=== PATIENT | female | born 2000 | race Hispanic/Latino ===

== ENCOUNTER 2024-02-13 21:51 | Emergency (ER) | payer BC ==
[~2024-02-13] VITALS: Ht 152.4 cm; Wt 68.0 kg
[2024-02-13 23:21] LABS: BASOPHILS # (AUTO) 0.02 K/uL (0.00-0.20); BASOPHILS % (AUTO) 0.2 % (0.0-5.0); EOSINOPHILS # (AUTO) 0.15 K/uL (0.00-0.70); EOSINOPHILS % (AUTO) 1.8 % (0.0-8.0); HEMATOCRIT 26.8 % (36-48); IMMATURE GRANULOCYTE ABSOLUTE 0.03 K/uL (0-1); LYMPHOCYTES # (AUTO) 3.2 K/uL (1.0-4.8); LYMPHOCYTES % (AUTO) 36.9 % (21.0-51.0); MEAN CORPUSCULAR VOLUME 91.2 fL (79-99); MONOCYTES # (AUTO) 0.5 K/uL (0.1-1.0); MONOCYTES % (AUTO) 5.7 % (3.0-13.0); NEUTROPHILS # (AUTO) 4.7 K/uL (1.8-7.7); PLATELET COUNT (AUTO) 205 K/uL (130-400); RED BLOOD CELL COUNT(AUTO) 2.94 MIL/uL (4.00-5.50); RED CELL DISTRIBUTION WIDTH 13.1 % (11.0-15.5); WHITE BLOOD COUNT (AUTO) 8.5 K/uL (4.8-10.8)
[2024-02-13 23:30] LABS: CREATININE 0.6 mg/dL (0.5-1.0); POTASSIUM 3.3 mmol/L (3.5-5.1)
[2024-02-13 23:38] LABS: INR <= 0.93 (0.85-1.15); PROTHROMBIN TIME 10.1 SEC (9.6-11.6)
[2024-02-13 23:40] LABS: PARTIAL THROMBOPLASTIN TIME 23.9 SEC (26.3-35.5)
[2024-02-14 00:28] VITALS: BP 111/61; PULSE 96; RESP 16; O2SAT 96
[2024-02-15] MEDS ORDERED: AMOX1TAB16 PO (22:45)
[2024-02-15] MEDS ORDERED: IBUP-2070 PO (22:45)
== END 2024-02-14 01:55 | disposition home or self-care (01) ==
LOC: EDH 21:51
DX: O03.9 Complete or unspecified spontaneous abortion without complication (principal); O26.899 Other specified pregnancy related conditions, unspecified trimester; R10.2 Pelvic and perineal pain; Z3A.00 Weeks of gestation of pregnancy not specified
CPT/HCPCS: 36415; 76801; 80048; 84702; 85025; 85610; 85730

== ENCOUNTER 2024-02-15 21:47 | Emergency (ER) | payer BC ==
[~2024-02-15] VITALS: Ht 152.4 cm; Wt 67.6 kg
[2024-02-15] MEDS: IBUPROFEN 600 MG TABLET PO ONE (22:03)
[2024-02-15 22:10] LABS: APPEARANCE,URINE CLEAR (CLEAR); BILIRUBIN,URINE NEGATIVE (NEGATIVE); COLOR,URINE LIGHT-YELLOW (YELLOW); GLUCOSE, URINE (UA) NEGATIVE (NEGATIVE); KETONES,URINE 10 mg/dL (NEGATIVE); LEUKOCYTE ESTERASE ,URINE 500 Leu/uL (NEGATIVE); NITRATE,URINE NEGATIVE (NEGATIVE); OCCULT BLOOD,URINE LARGE (NEGATIVE); PROTEIN,URINE NEGATIVE (NEGATIVE); UROBILINOGEN,URINE 0.2 mg/dL (0.2-1.0)
[2024-02-15 22:11] LABS: ADD UA MICROSCOPIC YES
[2024-02-15 22:12] LABS: HCG,QUALITATIVE URINE POSITIVE (NEGATIVE)
[2024-02-15 22:14] LABS: BACTERIA,URINE RARE /HPF (None Seen); MUCUS,URINE RARE LPF (None Seen); OTHER CASTS, URINE 2 /LPF (None Seen); RBC,URINE 26-50 /HPF (0-1); SQUAMOUS EPITHELIAL CELL,UR RARE /HPF (0-2); WBC,URINE 26-50 /HPF (0-1)
[2024-02-15 22:29] LABS: RAPID GROUP A STREP negative (NEGATIVE)
[2024-02-15 22:32] LABS: SARS-CoV-2, RNA, NAAT NEGATIVE SARS CoV-2 (NEGATIVE)
[2024-02-15 22:39] VITALS: TEMP 99.4
[2024-02-15 22:39] LABS: INFLUENZA TYPE A Negative For Type A (NEGATIVE); INFLUENZA TYPE B Negative For Type B (NEGATIVE)
[2024-02-15] MEDS: CEFTRIAXONE 1G VIAL IM ONE (22:43)
[2024-02-15] MEDS: DIPHENHYDRAMINE HCL 25 MG CAPSULE PO ONE (22:43)
[2024-02-15] MEDS: ACETAMINOPHEN 325 MG TAB PO ONE (22:43)
[2024-02-15] MEDS: METOCLOPRAMIDE 10 MG/2 ML VIAL IM ONE (22:43)
[2024-02-15] MEDS ORDERED: AMOX1TAB16 PO (22:45)
[2024-02-15] MEDS ORDERED: IBUP-2070 PO (22:45)
[2024-02-15 23:16] VITALS: BP 124/75; PULSE 98; RESP 19; O2SAT 99
== END 2024-02-15 23:18 | disposition home or self-care (01) ==
LOC: EDH 21:47
DX: N39.0 Urinary tract infection, site not specified (principal); Z20.822 Contact with and (suspected) exposure to COVID-19; Z79.899 Other long term (current) drug therapy
CPT/HCPCS: 99284; 87635; 87088; 87880; 87804 ×2; 81001; 81025; 96372 ×2; Q0163; J0696; J2765

== ENCOUNTER 2024-10-04 17:18 | Emergency (ER) | payer BC ==
[~2024-10-04] VITALS: Ht 152.4 cm; Wt 65.8 kg
[~2024-10-04 17:18] MED LIST: AMOX1TAB16 PO; IBUP-2070 PO
--- NOTE | 2024-10-04 17:33 | ERN ---
ED Note History of Present Illness Stated Complaint: STOMACH PAIN Time Seen by MD: 17:19 Time Seen by Midlevel: 17:19 Dictation: The patient is a 24-year-old female with no past medical history who presents to the emergency department with complaints of epigastric, right upper abdominal pain onset two weeks ago on and off. Patient reported today pain has been more constant. Patient reports an episode of nausea and nonbloody vomiting yesterday. Denies any diarrhea or constipation. Denies any fevers or urinary discomfort, hematuria. Allergies: Coded Allergies: No Known Allergies (Unverified Allergy, Unknown, 02/13/24) Home Meds Active Scripts Ibuprofen (Ibuprofen) 600 Mg Tablet, 600 MG PO Q6H PRN for PAIN, #30 TAB Prov:DUYEN BETANCOURT V ACCOUNTING BOOKKEEPER 02/15/24 Amoxicillin/Potassium Clav (Amox Tr-K Clv 875-125 mg Tab) 875 Mg-125 Mg Tablet, 1 EACH PO BID for 10 Days, #20 TAB Prov:DUYEN BETANCOURTP 02/15/24 Past Medical History Past Medical History: No Pertinent History Surgical History: None RN Note Reviewed/Agreed w/PFSH: Yes Review of System Dictation Constitutional: Negative for fever,chills, and weight loss Eyes: Negative for injury, pain,redness, and discharge ENT: Negative for injury,pain or swelling Cardiovascular: Negative for chest pain, palpitations, and edema Respiratory: Negative for shortness of breath, cough, and wheezing, Abdomen/GI: Negative for diarrhea, and constipation positive for abdominal pain, nausea, vomiting, Back: Negative for injury and pain : Negative for injury, bleeding and discharge MS/Extremity: Negative for injury and deformity Skin: Negative for rash, and discoloration Neuro: Negative for headache, weakness, numbness, tingling, and seizure Psych: Negative for suicide ideation, homicidal ideation, and hallucinations Initial Vital Sign VS Vital Signs Date Time Temp Pulse Resp B/P (MAP) Pulse Ox O2 Delivery O2 Flow Rate FiO2 10/04/24 17:48 97.9 64 16 126/71 100 Room Air 10/04/24 18:19 0 21 Physical Exam Dictation Vital Signs reviewed General Appearance: Alert, oriented x 3, no acute distress, well developed, nourished. Head and Face: non-traumatic. Eyes: PERRL, pink conjunctivas, eyelid no trauma, anterior chamber with arcus senilis. Ears: Pinnas intact and no signs of trauma or erythema ear canals clear and no discharge TM no erythema Nose: No discharge, no bleeding. Oropharynx: Mouth normal, tongue pink. pharynx clear,no erythema, tonsils no exudates, no abscesses noted, mucous membrane moist Neck: Supple, non-tender, no thyromegaly, no masses, no JVD, no bruits Breast:Deferred Chest:No tenderness, no crepitus, no paradoxical movement, no retractions Lungs:Clear, well-ventilated, symmetric, no rales, no wheezing, no rhonchi, no stridor, good breath sounds bilaterally Heart: Regular rate, regular rhythm, no murmur, no gallops Vascular: no peripheral edema, Abdomen: Soft, positive bowel sounds, nondistended, no guarding, nontender, no rebound, no masses no hepatomegaly, no splenomegaly, no Ramírez's sign, no hernias. Rectal: Deferred Genital: Deferred Neurological: Normal speech, motor function intact, sensory function intact Musculoskeletal: Neck nontender, full range of motion, back nontender, full ra nge of motion, Extremities: nontender, full range of motion Skin: Color pink, dry, no turgor, no rash, no lacerations, no abrasions, no contusions. Lymphatic: Deferred Results (Laboratory/Radiology) Laboratory/Radiology Laboratory Tests Test 10/04/24 18:16 10/04/24 18:34 10/04/24 18:43 White Blood Count 8.8 K/uL (4.8-10.8) Red Blood Count 4.66 MIL/uL (4.00-5.50) Hemoglobin 11.9 g/dL (12.0-16.0) L Hematocrit 37.3 % (36-48) Mean Corpuscular Volume 80.0 fL (79-99) Mean Corpuscular Hemoglobin 25.5 pg (27.0-33.0) L Mean Corpuscular Hemoglobin Concent 31.9 g/dL (32.0-36.0) L Red Cell Distribution Width 16.2 % (11.0-15.5) H Platelet Count 302 K/uL (130-400) Mean Platelet Volume 11.2 fL (7.5-10.5) H Immature Granulocyte % (Auto) 0.3 % (0-1) Neutrophils (%) (Auto) 71.3 % (40.0-77.0) Lymphocytes (%) (Auto) 20.8 % (21.0-51.0) L Monocytes (%) (Auto) 6.5 % (3.0-13.0) Eosinophils (%) (Auto) 0.9 % (0.0-8.0) Basophils (%) (Auto) 0.2 % (0.0-5.0) Neutrophils # (Auto) 6.3 K/uL (1.8-7.7) Lymphocytes # (Auto) 1.8 K/uL (1.0-4.8) Monocytes # (Auto) 0.6 K/uL (0.1-1.0) Eosinophils # (Auto) 0.08 K/uL (0.00-0.70) Basophils # (Auto) 0.02 K/uL (0.00-0.20) Absolute Immature Granulocyte (auto 0.03 K/uL (0-1) Nucleated Red Blood Cells 0.0 % (0.0-0.19) Sodium Level 136 mmol/L (136-145) Potassium Level 3.7 mmol/L (3.5-5.1) Chloride Level 101 mmol/L (101-111) Carbon Dioxide Level 26 mmol/L (21-32) Blood Urea Nitrogen 6 mg/dL (7-18) L Creatinine 0.6 mg/dL (0.5-1.0) Glomerular Filtration Rate Calc 128 mL/min (>90) Random Glucose 99 mg/dL (70-105) Total Calcium 9.3 mg/dL (8.5-10.1) Total Bilirubin 0.2 mg/dL (0.2-1.0) Direct Bilirubin < 0.1 mg/dL (0.0-0.3) Aspartate Amino Transf (AST/SGOT) 21 U/L (10-37) Alanine Aminotransferase (ALT/SGPT) 30 U/L (12-78) Alkaline Phosphatase 56 U/L (50-136) Total Protein 7.7 g/dL (6.0-8.3) Albumin 3.4 g/dL (3.5-5.0) L Lipase 36 U/L (16-77) Serum Test, Qualitative POSITIVE (NEGATIVE) H Human Chorionic Gonadotropin, Quant 921076 mIU/mL (0-5) H Urine Color YELLOW (YELLOW) Urine Appearance CLEAR (CLEAR) Urine pH 6.5 (5.0-8.0) Urine Specific [place] 1.030 (1.001-1.031) Urine Protein NEGATIVE mg/dL (NEGATIVE) Urine Glucose (UA) NEGATIVE mg/dL (NEGATIVE) Urine Ketones 10 mg/dL (NEGATIVE) H Urine Occult Blood NEGATIVE (NEGATIVE) Urine Nitrate NEGATIVE (NEGATIVE) Urine Bilirubin NEGATIVE mg/dL (NEGATIVE) Urine Urobilinogen 2.0 mg/dL (0.2-1.0) H Urine Leukocyte Esterase NEGATIVE Oni/uL Urine RBC 2-5 /HPF (0-1) H Urine WBC 2-5 /HPF (0-1) H Urine Squamous Epithelial Cells RARE /HPF (0-2) Urine Bacteria RARE /HPF (None Seen) REASON: ruq abd pain ORDERING PHYSICIAN: LAURA GUEVARA ACCOUNTING BOOKKEEPER PROCEDURE: [id number] - US ABDOMINAL RUQ\LTD ULTRASOUND ABDOMEN LIMITED INDICATION: Right upper abdominal pain COMPARISON: None FINDINGS: The liver is normal in size and echogenicity; no focal lesion demonstrated. Main portal vein is patent, and normal direction of vascular flow demonstrated. The common bile duct diameter measures 11.0 mm. Intrahepatic biliary duct dilation identified. Multiple echogenic shadowing stones within the gallbladder lumen without associated pericholecystic fluid. No sonographic Ramírez's sign elicited by the ultrasound beading machine operator. Wall thickness measures 2.0 mm. Visible portions of the pancreas appear normal. The right kidney measures 10.4 x 4.4 x 4.7 cm,and is normal in echogenicity, without evidence for hydronephrosis.No shadowing stones demonstrated. No free fluid demonstrated. IMPRESSION: Cholelithiasis as well as intrahepatic and extrahepatic biliary duct dilation suggesting distal choledocholithiasis until proven otherwise, but no evidence for cholecystitis. REASON: abd pain ORDERING PHYSICIAN: LAURA GUEVARA ACCOUNTING BOOKKEEPER PROCEDURE: OB <14 - US OB <14 WEEKS ULTRASOUND OF THE PELVIS ULTRASOUND ABD VASCULAR LIMITED INDICATION: Pelvic pain COMPARISONS: None TECHNIQUE: Transabdominal real-time sonographic images were acquired earlier, and subsequently made available for review. FINDINGS: The uterus measures 8.0 x 6.5 x 5.4 cm. The uterus is normal in echotexture and contour. Single live intrauterine gestation corresponds to sonographic gestational age of 8 weeks 5 days +/- 5 days based on crown-rump length of 2.1 cm. No abnormal subchorionic hypoechoic area demonstrated. heart rate = 171 BPM. The right ovary measures 3.0 x 1.4 x 2.6 cm. The right ovary is normal in size, shape and echogenicity. No right adnexal masses demonstrated. Color Doppler flow is normal throughout the right ovary. Spectral Doppler analysis demonstrates a normal waveform pattern. The left ovary measures 1.9 x 1.5 x 1.9 cm. The left ovary is normal in size, shape and echogenicity. No left adnexal masses demonstrated. Color Doppler flow is normal throughout the left ovary. Spectral Doppler analysis demonstrates a normal waveform pattern. No free pelvic fluid demonstrated. IMPRESSION: 1. Single live intrauterine gestation corresponding to sonographic gestational age of 8 weeks 5 days +/- 5 days based on crown-rump length, and with heart rate = 171 BPM. 2. No evidence for subchorionic hemorrhage. 3. JARETT = 05/11/2025. Labs Reviewed?: Yes ED Course ED Course Orders Procedure Category Date Status Time Cbc With Differential LAB 10/04/24 Complete 17:30 Urinalysis Profile LAB 10/04/24 Complete 17:30 0.9%Nacl 1000ml (Ns PHA 10/04/24 Complete 1000ml) 17:30 Morphine 4mg Syg PHA 10/04/24 Complete (Morphine 4mg Syg) 17:30 Ondansetron 4mg Inj PHA 10/04/24 Complete (Zofran 4mg Inj) 17:30 Pantoprazole 40mg Inj PHA 10/04/24 Complete (Protonix 40mg Inj 17:30 Lipase LAB 10/04/24 Complete 17:30 Basic Metabolic Panel LAB 10/04/24 Complete 17:30 Testing, LAB 10/04/24 Complete Serum Hcg 17:30 Hepatic Function Panel LAB 10/04/24 Complete 17:30 Us Abdominal Ruq\Ltd US 10/04/24 Resulted 17:30 Hcg,Quantitative LAB 10/04/24 Complete 18:57 Us Ob <14 Weeks US 10/04/24 Resulted 19:00 Ceftriaxone 1g Vial PHA 10/04/24 Complete (Rocephine 1g Inj) 19:30 Current Medications Medications (Trade) Dose Ordered Sig/Shayy Route PRN Reason Start Time Stop Time Status Last Admin Dose Admin Ceftriaxone Sodium (ROCEphine 1G INJ) 1 gm ONCE ONCE IVPB 10/04/24 19:30 10/04/24 19:31 DC 10/04/24 19:49 Morphine Sulfate (morPHINE 4MG SYG) 4 mg ONCE ONCE IVP 10/04/24 17:30 10/04/24 17:32 DC 10/04/24 18:40 Ondansetron HCl (zoFRAN 4MG INJ) 4 mg ONCE ONCE IVP 10/04/24 17:30 10/04/24 17:32 DC 10/04/24 18:40 Pantoprazole Sodium (PROTonix 40MG INJ) 40 mg ONCE ONCE IVP 10/04/24 17:30 10/04/24 17:32 DC 10/04/24 18:40 Sodium Chloride 1,000 ml @ 0 mls/hr ONCE ONCE IV 10/04/24 17:30 10/04/24 17:32 DC 10/04/24 18:40 Vital Signs Date Time Temp Pulse Resp B/P (MAP) Pulse Ox O2 Delivery O2 Flow Rate FiO2 10/04/24 19:58 73 18 123/72 100 Room Air* 0 21 10/04/24 18:19 98.1 62 18 124/70 98 Room Air* 0 21 10/04/24 17:48 97.9 64 16 126/71 100 Room Air Medical Decision Making [facility] The patient is a 24-year-old female with no past medical history who presents to the emergency department with complaints of epigastric, right upper abdominal pain onset two weeks ago on and off. Patient reported today pain has been more constant. Patient reports an episode of nausea and nonbloody vomiting yesterday. Denies any diarrhea or constipation. Denies any fevers or urinary discomfort, hematuria. CBC showed no leukocytosis, mild normocytic anemia, chemistry showed positive test, hCG levels of 950231, negative lipase, normal renal function, normal liver enzymes, urinalysis no UTI. Abdominal ultrasound showed common but measuring 11 mm and extrahepatic duct dilation suggestive of choledocholithiasis. Ob ultrasound showed single live intrauterine gestation corresponding to eight weeks five days. Patient denies any vaginal bleeding or discharge. A1. Discussed case with Dr. Ji who at this time suggest patient follow up as outpatient. Treat pain and give IV fluids. Instruct patient that if symptoms worsen to return to ER. Patient currently in no acute distress. Nontender abdomen. Nontoxic appearance. Patient agrees to be discharged and follow up with OB and return if symptoms worsen. Differential diagnosis: Cholelithiasis, cholecystitis, electrolyte imbalance, gastritis, Need for hospitalization: Patient does not meet criteria for hospitalization. There are no social concerns with this patient. DX & DISP Disposition: Discharge Departure Impression: Primary Impression: Cholelithiasis Additional Impressions: 8 weeks gestation of , Intrauterine , Dilated cbd, acquired Condition: Stable Additional Instructions: Please follow up with your OBGYN as soon as possible. Please continue a low-fat diet. Follow up with GI. If symptoms worsen please return to ER. FOLLOW-UP WITH PRIMARY CARE PROVIDER IN 1 TO 2 DAYS. TAKE MEDICATIONS DIRECTED HERE IN THE EMERGENCY ROOM. OKAY TO CONTINUE HOME MEDICATIONS UNLESS OTHERWISE DISCUSSED DURING YOUR VISIT IN THE EMERGENCY ROOM TODAY. RETURN TO YOUR NEAREST EMERGENCY ROOM IF SYMPTOMS WORSEN OR IF THERE IS NO IMPROVEMENT. CALL 911 IF YOU NEED IMMEDIATE ASSISTANCE. TAKE TYLENOL [id number] NEEDED AND IF NO CONTRAINDICATIONS ARE PRESENT. INCREASE ORAL HYDRATION. A WOUND CULTURE OR URINE CULTURE WAS ORDERED HERE IN THE EMERGENCY ROOM DEPARTMENT PLEASE FOLLOW-UP WITH PRIMARY CARE PROVIDER AND ADVISE THEM TO GET REPEAT PORTS FROM OUR FACILITY. IF YOU HAD ANY KIYA WRAP/SPLINTS THAT WERE APPLIED HERE, PLEASE DO NOT REMOVE THEM UNTIL YOU SEE YOUR PRIMARY CARE OR SPECIALTY. Referrals: MORRIS ABRAHAM JR, MD (PCP) IVONNE JI MD Time of Disposition: 20:47 I have reviewed the case, and I agree with, Diagnosis and Plan LAURA GUEVARA Oct 04, 2024 17:33
[2024-10-04 18:19] VITALS: TEMP 98.1
--- NOTE | 2024-10-04 18:20 | HMCIMG ---
ULTRASOUND ABDOMEN LIMITED INDICATION: Right upper abdominal pain COMPARISON: None FINDINGS: The liver is normal in size and echogenicity; no focal lesion demonstrated. Main portal vein is patent, and normal direction of vascular flow demonstrated. The common bile duct diameter measures 11.0 mm. Intrahepatic biliary duct dilation identified. Multiple echogenic shadowing stones within the gallbladder lumen without associated pericholecystic fluid. No sonographic Ramírez's sign elicited by the ultrasound broaching machine set up operator. Wall thickness measures 2.0 mm. Visible portions of the pancreas appear normal. The right kidney measures 10.4 x 4.4 x 4.7 cm,and is normal in echogenicity, without evidence for hydronephrosis.No shadowing stones demonstrated. No free fluid demonstrated. IMPRESSION: Cholelithiasis as well as intrahepatic and extrahepatic biliary duct dilation suggesting distal choledocholithiasis until proven otherwise, but no evidence for cholecystitis.
[2024-10-04] MEDS: ondanSETRON 4MG INJ IVP ONE (18:40)
[2024-10-04] MEDS: morPHINE 4 MG SYG IVP ONE (18:40)
[2024-10-04] MEDS: PANTOPrazole 40 MG/VIAL IVP ONE (18:40)
[2024-10-04] MEDS: 0.9%NACL 1000ML 1,000 ML IV ONE (18:40)
[2024-10-04 18:44] LABS: BASOPHILS # (AUTO) 0.02 K/uL (0.00-0.20); BASOPHILS % (AUTO) 0.2 % (0.0-5.0); EOSINOPHILS # (AUTO) 0.08 K/uL (0.00-0.70); EOSINOPHILS % (AUTO) 0.9 % (0.0-8.0); HEMATOCRIT 37.3 % (36-48); IMMATURE GRANULOCYTE ABSOLUTE 0.03 K/uL (0-1); LYMPHOCYTES # (AUTO) 1.8 K/uL (1.0-4.8); LYMPHOCYTES % (AUTO) 20.8 % (21.0-51.0); MEAN CORPUSCULAR HEMOGLOBIN 25.5 pg (27.0-33.0); MEAN CORPUSCULAR HGB CONC 31.9 g/dL (32.0-36.0); MONOCYTES # (AUTO) 0.6 K/uL (0.1-1.0); MONOCYTES % (AUTO) 6.5 % (3.0-13.0); NEUTROPHILS # (AUTO) 6.3 K/uL (1.8-7.7); NEUTROPHILS % (AUTO) 71.3 % (40.0-77.0); PLATELET COUNT (AUTO) 302 K/uL (130-400); RED BLOOD CELL COUNT(AUTO) 4.66 MIL/uL (4.00-5.50); RED CELL DISTRIBUTION WIDTH 16.2 % (11.0-15.5); WHITE BLOOD COUNT (AUTO) 8.8 K/uL (4.8-10.8)
[2024-10-04 18:58] LABS: CARBON DIOXIDE 26 mmol/L (21-32); CHLORIDE 101 mmol/L (101-111); CREATININE 0.6 mg/dL (0.5-1.0); GLOMERULAR FILTR. RATE CALC 128 mL/min (>90); GLUCOSE,RANDOM 99 mg/dL (70-105); POTASSIUM 3.7 mmol/L (3.5-5.1); SODIUM SERUM 136 mmol/L (136-145); UREA NITROGEN, BLOOD 6 mg/dL (7-18)
[2024-10-04 19:02] LABS: ALANINE AMINOTRANSFERASE 30 U/L (12-78); ALBUMIN 3.4 g/dL (3.5-5.0); ASPARTATE AMINOTRANSFERASE 21 U/L (10-37); BILIRUBIN,DIRECT < 0.1 mg/dL (0.0-0.3); BILIRUBIN,TOTAL 0.2 mg/dL (0.2-1.0); TOTAL PROTEIN, SERUM 7.7 g/dL (6.0-8.3)
[2024-10-04 19:05] LABS: APPEARANCE,URINE CLEAR (CLEAR); BILIRUBIN,URINE NEGATIVE (NEGATIVE); COLOR,URINE YELLOW (YELLOW); GLUCOSE, URINE (UA) NEGATIVE (NEGATIVE); KETONES,URINE 10 mg/dL (NEGATIVE); LEUKOCYTE ESTERASE ,URINE NEGATIVE Leu/uL (NEGATIVE); NITRATE,URINE NEGATIVE (NEGATIVE); OCCULT BLOOD,URINE NEGATIVE (NEGATIVE); PH,URINE 6.5 (5.0-8.0); PROTEIN,URINE NEGATIVE (NEGATIVE)
[2024-10-04 19:08] LABS: ADD UA MICROSCOPIC YES
[2024-10-04 19:14] LABS: BACTERIA,URINE RARE /HPF (None Seen); MUCUS,URINE RARE LPF (None Seen); SQUAMOUS EPITHELIAL CELL,UR RARE /HPF (0-2)
[2024-10-04] MEDS: cefTRIAXone 1G VIAL IVPB ONE (19:49)
--- NOTE | 2024-10-04 19:52 | HMCIMG ---
ULTRASOUND OF THE PELVIS ULTRASOUND ABD VASCULAR LIMITED INDICATION: Pelvic pain COMPARISONS: None TECHNIQUE: Transabdominal real-time sonographic images were acquired earlier, and subsequently made available for review. FINDINGS: The uterus measures 8.0 x 6.5 x 5.4 cm. The uterus is normal in echotexture and contour. Single live intrauterine gestation corresponds to sonographic gestational age of 8 weeks 5 days +/- 5 days based on crown-rump length of 2.1 cm. No abnormal subchorionic hypoechoic area demonstrated. heart rate = 171 BPM. The right ovary measures 3.0 x 1.4 x 2.6 cm. The right ovary is normal in size, shape and echogenicity. No right adnexal masses demonstrated. Color Doppler flow is normal throughout the right ovary. Spectral Doppler analysis demonstrates a normal waveform pattern. The left ovary measures 1.9 x 1.5 x 1.9 cm. The left ovary is normal in size, shape and echogenicity. No left adnexal masses demonstrated. Color Doppler flow is normal throughout the left ovary. Spectral Doppler analysis demonstrates a normal waveform pattern. No free pelvic fluid demonstrated. IMPRESSION: 1. Single live intrauterine gestation corresponding to sonographic gestational age of 8 weeks 5 days +/- 5 days based on crown-rump length, and with heart rate = 171 BPM. 2. No evidence for subchorionic hemorrhage. 3. JARETT = 05/11/2025.
[2024-10-04 21:58] VITALS: BP 117/61; PULSE 62; RESP 17; O2SAT 100
== END 2024-10-04 22:00 | disposition home or self-care (01) ==
LOC: EDH 17:18
DX: O26.611 Liver and biliary tract disorders in pregnancy, first trimester (principal); K80.20 Calculus of gallbladder without cholecystitis without obstruction; O26.891 Other specified pregnancy related conditions, first trimester; K82.8 Other specified diseases of gallbladder; R10.2 Pelvic and perineal pain; Z3A.08 8 weeks gestation of pregnancy; Z79.899 Other long term (current) drug therapy
CPT/HCPCS: 99285; 96365; 96375; 76705; 76801; 80076; 80048; 84703; 84702; 83690; 85025; 81001; 36415; J7030; J0696; J2405; J2270; J2470

== ENCOUNTER 2024-10-07 04:15 | Emergency (ER) | payer BC ==
[~2024-10-07] VITALS: Ht 152.4 cm; Wt 63.5 kg
--- NOTE | 2024-10-07 04:36 | ERN ---
ED Note History of Present Illness Stated Complaint: RUQ ABD PAIN, "GALLSTONE PAIN" Chief Complaint: Abdominal Pain Time Seen by : 04:28 Dictation: 10-06-2024- 7 PM TO 10/07/2024 7 AM-- Dr. Lang took care of the patient 10/07/2024- 7 am to 7 pm- dr. Lucrecia Ly took care of the patient.- Please check with tray line supervisor Sherie for details . Please note that due to lack of OB services , patients admission to hospitalist service was declined. [facility] transfer was also declined by them stating Pancreatitis in is not OB related. Efforts to transfer her to Dr. Villaseñor, OB to other hospitals were unsuccessful. 10/07/2024- 7 pm - Dr. Lang. -discharged the patient with clinical improvement. This is a 24-year-old female who presented to the emergency room with complaints of severe right upper quadrant pain. Apparently this started couple of weeks ago and she was seen on 10/04/2024 and ultrasound of the abdomen as well as pelvis was done which confirmed cholelithiasis choledocholithiasis. Patient's LFTs were completely normal and Dr. John recommended an outpatient follow-up at the time. She comes back in with ongoing pain. She also reports nausea Temperature 99 pulse 80 respirations 16 pulse oximetry 99% on room air Patient has 8 weeks intrauterine Allergies: Coded Allergies: No Known Allergies (Unverified Allergy, Unknown, 02/13/24) Home Meds Active Scripts Acetaminophen with Codeine (Acetaminophen-Cod #3 Tablet) 300 Mg-30 Mg Tablet, 1 TAB PO Q6HPRN PRN for pain for 7 Days, #28 TAB 0 Refills Prov:KADE LANG MD 10/07/24 Ondansetron (Ondansetron Odt) 4 Mg Tab.rapdis, 4 MG PO Q6HPRN PRN for nausea, #16 TAB 0 Refills Prov:KADE LANG MD 10/07/24 Ibuprofen (Ibuprofen) 600 Mg Tablet, 600 MG PO Q6H PRN for PAIN, #30 TAB Prov:DUYEN BETANCOURT V BARREL CHARRER HELPER 02/15/24 Amoxicillin/Potassium Clav (Amox Tr-K Clv 875-125 mg Tab) 875 Mg-125 Mg Tablet, 1 EACH PO BID for 10 Days, #20 TAB Prov:DUYEN BETANCOURT V BARREL CHARRER HELPER 02/15/24 Past Medical History Past Medical History: No Pertinent History Surgical History: None Family History: Negative Social History: Negative LMP: Sep 10, 2024 : 4 Para: 2 Aborts: 1 RN Note Reviewed/Agreed w/PFSH: Yes Review of System Dictation Constitutional: Negative for fever,chills, and weight loss Eyes: Negative for injury, pain,redness, and discharge ENT: Negative for injury,pain or swelling Cardiovascular: Negative for chest pain, palpitations, and edema Respiratory: Negative for shortness of breath, cough, and wheezing, Abdomen/GI: Positive for abdominal pain, nausea, vomiting, deny diarrhea, and constipation Back: Negative for injury and pain : Negative for injury, bleeding and discharge intrauterine 8 weeks MS/Extremity: Negative for injury and deformity Skin: Negative for rash, and discoloration Neuro: Negative for headache, weakness, numbness, tingling, and seizure Psych: Negative for suicide ideation, homicidal ideation, and hallucinations Initial Vital Sign VS Vital Signs Date Time Temp Pulse Resp B/P (MAP) Pulse Ox O2 Delivery O2 Flow Rate FiO2 10/07/24 04:16 99.0 80 16 113/51 99 Room Air* 0 21 Physical Exam Dictation General: awake, alert, NAD Head/Face: Normocephalic, atraumatic Eyes: PERRL, EOMI, vision at baseline ENT: oral cavity clear, TMs clear, no signs of infection Neck: Trachea midline, supple, no nuchal rigidity Cardiovascular: RRR, normal S1/S2, No MRGs, no JVD Respiratory: CTAB, no respiratory distress, No rales or wheezes Abdomen: Soft, non-tender, non-distended, normal bowel sounds, no guarding or rebound. Skin: Warm, dry, normal turgor, no rash MS/Extremity: Pulses equal, no cyanosis, neurovascular intact, FROM Neuro: COAx4, GCS 15, strength 5/5, CN 2-12 intact, normal cerebellar exam, norm al gait, Psych: Normal behavior, mood, and affect normal Extremities-trace edema without any palpable cords, Homans sign is negative Results (Laboratory/Radiology) Laboratory/Radiology Laboratory Tests Test 10/07/24 04:29 10/07/24 07:29 10/07/24 09:00 10/07/24 14:41 White Blood Count 10.2 K/uL (4.8-10.8) Red Blood Count 4.31 MIL/uL (4.00-5.50) Hemoglobin 11.2 g/dL (12.0-16.0) L Hematocrit 34.7 % (36-48) L Mean Corpuscular Volume 80.5 fL (79-99) Mean Corpuscular Hemoglobin 26.0 pg (27.0-33.0) L Mean Corpuscular Hemoglobin Concent 32.3 g/dL (32.0-36.0) Red Cell Distribution Width 16.0 % (11.0-15.5) H Platelet Count 288 K/uL (130-400) Mean Platelet Volume 11.6 fL (7.5-10.5) H Immature Granulocyte % (Auto) 0.4 % (0-1) Neutrophils (%) (Auto) 80.5 % (40.0-77.0) H Lymphocytes (%) (Auto) 11.9 % (21.0-51.0) L Monocytes (%) (Auto) 6.5 % (3.0-13.0) Eosinophils (%) (Auto) 0.4 % (0.0-8.0) Basophils (%) (Auto) 0.3 % (0.0-5.0) Neutrophils # (Auto) 8.2 K/uL (1.8-7.7) H Lymphocytes # (Auto) 1.2 K/uL (1.0-4.8) Monocytes # (Auto) 0.7 K/uL (0.1-1.0) Eosinophils # (Auto) 0.04 K/uL (0.00-0.70) Basophils # (Auto) 0.03 K/uL (0.00-0.20) Absolute Immature Granulocyte (auto 0.04 K/uL (0-1) Nucleated Red Blood Cells 0.0 % (0.0-0.19) Sodium Level 137 mmol/L (136-145) Potassium Level 3.6 mmol/L (3.5-5.1) Chloride Level 102 mmol/L (101-111) Carbon Dioxide Level 28 mmol/L (21-32) Blood Urea Nitrogen 9 mg/dL (7-18) Creatinine 0.6 mg/dL (0.5-1.0) Glomerular Filtration Rate Calc 128 mL/min (>90) Random Glucose 124 mg/dL (70-105) H Total Calcium 9.3 mg/dL (8.5-10.1) Total Bilirubin 0.4 mg/dL (0.2-1.0) Aspartate Amino Transf (AST/SGOT) 282 U/L (10-37) H Alanine Aminotransferase (ALT/SGPT) 163 U/L (12-78) H Alkaline Phosphatase 85 U/L (50-136) Total Creatine Kinase 71 U/L (21-232) Total Protein 7.3 g/dL (6.0-8.3) Albumin 3.2 g/dL (3.5-5.0) L Lipase U/L (16-77) 4699 U/L (16-77) *H 278 U/L (16-77) H Human Chorionic Gonadotropin, Quant 515378 mIU/mL (0-5) H Urine Color YELLOW (YELLOW) Urine Appearance CLEAR (CLEAR) Urine pH 7.0 (5.0-8.0) Urine Specific [place] 1.026 (1.001-1.031) Urine Protein 10 mg/dL (NEGATIVE) H Urine Glucose (UA) NEGATIVE mg/dL (NEGATIVE) Urine Ketones 20 mg/dL (NEGATIVE) H Urine Occult Blood NEGATIVE (NEGATIVE) Urine Nitrate NEGATIVE (NEGATIVE) Urine Bilirubin NEGATIVE mg/dL (NEGATIVE) Urine Urobilinogen >=8.0 mg/dL (0.2-1.0) H Urine Leukocyte Esterase 25 Oni/uL (NEGATIVE) H Urine RBC 0-1 /HPF (0-1) Urine WBC 2-5 /HPF (0-1) H Urine Squamous Epithelial Cells FEW /HPF (0-2) Urine Bacteria RARE /HPF (None Seen) Urine Opiates Screen NEGATIVE (NEGATIVE) Urine Barbiturates Screen NEGATIVE (NEGATIVE) Urine Phencyclidine Screen NEGATIVE (NEGATIVE) Urine Amphetamines Screen NEGATIVE (NEGATIVE) Urine Benzodiazepines Screen NEGATIVE (NEGATIVE) Urine Cocaine Screen NEGATIVE (NEGATIVE) Urine Marijuana (THC) Screen NEGATIVE (NEGATIVE) Triglycerides Level 31 mg/dL (30-200) Test 10/07/24 18:12 Sodium Level 139 mmol/L (136-145) Potassium Level 3.6 mmol/L (3.5-5.1) Chloride Level 105 mmol/L (101-111) Carbon Dioxide Level 27 mmol/L (21-32) Blood Urea Nitrogen 3 mg/dL (7-18) L Creatinine 0.5 mg/dL (0.5-1.0) Glomerular Filtration Rate Calc 134 mL/min (>90) Random Glucose 74 mg/dL (70-105) Total Calcium 8.3 mg/dL (8.5-10.1) L Total Bilirubin 0.3 mg/dL (0.2-1.0) # Aspartate Amino Transf (AST/SGOT) 194 U/L (10-37) H Alanine Aminotransferase (ALT/SGPT) 230 U/L (12-78) #H Alkaline Phosphatase 90 U/L (50-136) Total Protein 6.4 g/dL (6.0-8.3) Albumin 2.7 g/dL (3.5-5.0) L Labs Reviewed?: Yes Ultrasound Comment: REASON: ruq abd pain ORDERING PHYSICIAN: LAURA GUEVARA BARREL CHARRER HELPER PROCEDURE: [id number] - US ABDOMINAL RUQ\\LTD ULTRASOUND ABDOMEN LIMITED INDICATION: Right upper abdominal pain COMPARISON: None FINDINGS: The liver is normal in size and echogenicity; no focal lesion demonstrated. Main portal vein is patent, and normal direction of vascular flow demonstrated. The common bile duct diameter measures 11.0 mm. Intrahepatic biliary duct dilation identified. Multiple echogenic shadowing stones within the gallbladder lumen without associated pericholecystic fluid. No sonographic Ramírez's sign elicited by the ultrasound ram press operator. Wall thickness measures 2.0 mm. Visible portions of the pancreas appear normal. The right kidney measures 10.4 x 4.4 x 4.7 cm,and is normal in echogenicity, without evidence for hydronephrosis.No shadowing stones demonstrated. No free fluid demonstrated. IMPRESSION: Cholelithiasis as well as intrahepatic and extrahepatic biliary duct dilation suggesting distal choledocholithiasis until proven otherwise, but no evidence for cholecystitis. REASON: abd pain ORDERING PHYSICIAN: LAURA GUEVARA BARREL CHARRER HELPER PROCEDURE: OB <14 - US OB <14 WEEKS ULTRASOUND OF THE PELVIS ULTRASOUND ABD VASCULAR LIMITED INDICATION: Pelvic pain COMPARISONS: None TECHNIQUE: Transabdominal real-time sonographic images were acquired earlier, and subsequently made available for review. FINDINGS: The uterus measures 8.0 x 6.5 x 5.4 cm. The uterus is normal in echotexture and contour. Single live intrauterine gestation corresponds to sonographic gestational age of 8 weeks 5 days +/- 5 days based on crown-rump length of 2.1 cm. No abnormal subchorionic hypoechoic area demonstrated. heart rate = 171 BPM. The right ovary measures 3.0 x 1.4 x 2.6 cm. The right ovary is normal in size, shape and echogenicity. No right adnexal masses demonstrated. Color Doppler flow is normal throughout the right ovary. Spectral Doppler analysis demonstrates a normal waveform pattern. The left ovary measures 1.9 x 1.5 x 1.9 cm. The left ovary is normal in size, shape and echogenicity. No left adnexal masses demonstrated. Color Doppler flow is normal throughout the left ovary. Spectral Doppler analysis demonstrates a normal waveform pattern. No free pelvic fluid demonstrated. IMPRESSION: 1. Single live intrauterine gestation corresponding to sonographic gestational age of 8 weeks 5 days +/- 5 days based on crown-rump length, and with heart rate = 171 BPM. 2. No evidence for subchorionic hemorrhage. 3. JARETT = 05/11/2025. ED Course ED Course Orders Procedure Category Date Status Time 0.9%Nacl 1000ml (Ns PHA 10/07/24 Complete 1000ml) 05:00 Hydromorphone 1 Mg PHA 10/07/24 Complete Inj (Dilaudid 1mg Inj 05:00 Ondansetron 4mg Inj PHA 10/07/24 Complete (Zofran 4mg Inj) 05:30 Cbc With Differential LAB 10/07/24 Complete 07:09 Comprehensive LAB 10/07/24 Complete Metabolic Panel 07:09 Hcg,Quantitative LAB 10/07/24 Complete 07:09 Urinalysis Profile LAB 10/07/24 Complete 07:09 Us Abdominal Ruq\\Ltd US 10/07/24 Resulted 07:09 Creatine Kinase, Total LAB 10/07/24 Complete 07:09 Lipase LAB 10/07/24 Complete 07:09 Drug Screen Urine LAB 10/07/24 Complete 07:09 0.9%Nacl 1000ml (Ns PHA 10/07/24 Complete 1000ml) 10:00 Lipase LAB 10/07/24 Complete 07:29 Lipase LAB 10/07/24 Complete 13:10 Triglycerides LAB 10/07/24 Complete 13:10 Lipase LAB 10/07/24 Complete 14:41 Comprehensive LAB 10/07/24 Complete Metabolic Panel 18:03 Current Medications Medications (Trade) Dose Ordered Sig/Shayy Route PRN Reason Start Time Stop Time Status Last Admin Dose Admin Hydromorphone HCl (DiLAUDid 1MG INJ) 1 mg ONCE ONCE IVP 10/07/24 05:00 10/07/24 05:01 DC 10/07/24 04:46 Ondansetron HCl (zoFRAN 4MG INJ) 4 mg ONCE ONCE IVP 10/07/24 05:30 10/07/24 05:31 DC 10/07/24 05:07 Sodium Chloride 1,000 ml @ 0 mls/hr ONCE ONCE IV 10/07/24 10:00 10/07/24 10:01 DC 10/07/24 10:46 Sodium Chloride 1,000 ml @ 125 mls/hr ONCE ONCE IV 10/07/24 05:00 10/07/24 12:59 DC 10/07/24 04:46 Vital Signs Date Time Temp Pulse Resp B/P (MAP) Pulse Ox O2 Delivery O2 Flow Rate FiO2 10/07/24 21:16 98.6 75 18 114/71 100 Room Air* 0 10/07/24 17:30 98.1 72 16 102/57 99 Room Air* 0 10/07/24 15:30 72 16 101/55 99 Room Air* 0 10/07/24 14:30 70 16 105/61 99 Room Air* 0 10/07/24 13:30 70 16 104/68 99 Room Air* 0 10/07/24 12:30 80 16 104/70 99 Room Air* 0 10/07/24 11:30 98.1 78 16 99/62 99 Room Air* 0 10/07/24 10:30 98.1 78 16 100/50 99 Room Air* 0 10/07/24 08:19 97.3 78 16 109/71 99 Room Air* 0 10/07/24 07:30 98.2 80 16 112/68 99 Room Air* 0 10/07/24 06:34 98.2 80 16 109/54 99 Room Air* 0 10/07/24 04:59 90 16 114/64 99 Room Air* 0 10/07/24 04:21 99.0 80 16 113/51 99 Room Air 0 10/07/24 04:16 99.0 80 16 113/51 99 Room Air* 0 21 We will perform diagnostic labs, advanced imaging and administer medications according to the patient's complaint. Once the results are available, will review and personally interpreted the labs to rule out any acute life- threatening emergency the trach require immediate intervention and treatment. I will then re-evaluate the patient after treatment and diagnostic exams have return to determine whether the patient requires any further testing, can safely be discharged home or need further admission to hospital for additional treatment and evaluation. 7:00 a.m. on 10 07 2024-signed out the patient to Dr. Ly, tanmay physician. During his 12 hour shift patient was treated for pancreatitis with IV fluids and pain medications. 7:00 p.m.-patient is still in the emergency room signed out to me by Dr. Ly. He is signed out to me that extensive efforts to admit the patient to hospitalist service -Dr. Styles at [facility] was unsuccessful. They refused to admit as there was no OB services availability. Dr. Villaseñor, floor molder was also called to facilitate transfer of the patient to any other facility with OB services. Patient was declined by all the hospitals according to Dr. Ly, as it was not a obstetrical emergency. I have no documentation records from a.m. shift house director. Labs reviewed Medical Decision Making MDM MDM: Differential diagnosis: Pancreatitis, biliary colic, cholecystitis, cholangitis, gastritis, peptic ulcer disease, hyperemesis gravidarum Rationale: Tests considered and ordered secondary to shared decision making include: Previous outside records reviewed: Old ER visits. Risk of complication and/or morbidity or mortality of patient management: None Medications-Per medication reconciliation Need for hospitalization: Patient does not meet criteria for hospitalization. Need for emergency major/minor surgery: No There are no social concerns with this patient. Prescription drug management Prescriptions will include symptomatic care Patient's prior external medical records from other ER visits were reviewed by me as indicated. Prior testing and results from previous visits were reviewed. Prior tests were taken into account with medical decision making and resource utilization, independent historian/historians were used to obtain complete medical history. I independently interpreted the test that were performed, results were reviewed by me and considered findings on radiology if ordered. Medical management and examination interpretation discussions were had by me with other qualified healthcare professionals as indicated for the patient's care. Problem List Problem List: (1) Cholelithiasis (2) Dilated cbd, acquired (3) Intrauterine (4) 8 weeks gestation of (5) Pancreatitis DX & DISP Disposition: Discharge Departure Impression: Primary Impression: Cholelithiasis Additional Impressions: Dilated cbd, acquired, Intrauterine , 8 weeks gestation of , Pancreatitis Condition: Stable Scripts Acetaminophen with Codeine (Acetaminophen-Cod #3 Tablet) 300 Mg-30 Mg Tablet 1 TAB PO Q6HPRN PRN for pain for 7 Days, #28 TAB 0 Refills Prov: KADE LANG MD 10/07/24 Ondansetron (Ondansetron Odt) 4 Mg Tab.rapdis 4 MG PO Q6HPRN PRN for nausea, #16 TAB 0 Refills Prov: KADE LANG MD 10/07/24 Additional Instructions: Patient and the caregiver have been informed of all the diagnostic tests and the imaging conducted during the today's visit to the emergency room and has verbalized understanding of the results I have personally reviewed and interpreted all diagnostic exams performed here in the ER today as well as the vital signs documented by the nursing staff. The patient is now being discharged to home and should follow up with the primary care physician or the specialist as directed by the ER staff. Follow-up with primary care provider in 1 to 2 days. Take medications as directed here in the emergency room. Okay to continue home medications unless otherwise discussed during your visit in the emergency room today. Return to your nearest emergency room if symptoms worsen or if there is no improvement. Call 911 if you need immediate assistance. Take Tylenol or Motrin [id number] as needed and if no contraindications are present. Increase oral hydration. A wound culture or urine culture was ordered here in the emergency room department please follow-up with primary care provider and advise them to get repeat ports from our facility. If you had any Samy wrap/splints that were applied here, please do not remove them until you see your primary care or specialty. Referrals: SELF,REFERRAL (PCP) KADE LANG MD Oct 07, 2024 04:36
[2024-10-07] MEDS: hydroMORPHone 1 MG INJ IVP ONE (04:46)
[2024-10-07] MEDS: 0.9%NACL 1000ML 1,000 ML IV ONE ×2 (04:46→10:46)
[2024-10-07] MEDS: ondanSETRON 4MG INJ IVP ONE (05:07)
[2024-10-07] MEDS ORDERED: ONDA-243 PO (05:59)
[2024-10-07] MEDS ORDERED: ACET-2079 PO (05:59)
[2024-10-07 07:33] LABS: BASOPHILS # (AUTO) 0.03 K/uL (0.00-0.20); BASOPHILS % (AUTO) 0.3 % (0.0-5.0); EOSINOPHILS # (AUTO) 0.04 K/uL (0.00-0.70); EOSINOPHILS % (AUTO) 0.4 % (0.0-8.0); HEMATOCRIT 34.7 % (36-48); IMMATURE GRANULOCYTE ABSOLUTE 0.04 K/uL (0-1); LYMPHOCYTES # (AUTO) 1.2 K/uL (1.0-4.8); LYMPHOCYTES % (AUTO) 11.9 % (21.0-51.0); MEAN CORPUSCULAR HGB CONC 32.3 g/dL (32.0-36.0); MEAN CORPUSCULAR VOLUME 80.5 fL (79-99); MONOCYTES # (AUTO) 0.7 K/uL (0.1-1.0); MONOCYTES % (AUTO) 6.5 % (3.0-13.0); NEUTROPHILS # (AUTO) 8.2 K/uL (1.8-7.7); NEUTROPHILS % (AUTO) 80.5 % (40.0-77.0); PLATELET COUNT (AUTO) 288 K/uL (130-400); RED BLOOD CELL COUNT(AUTO) 4.31 MIL/uL (4.00-5.50); WHITE BLOOD COUNT (AUTO) 10.2 K/uL (4.8-10.8)
[2024-10-07 08:05] LABS: ALBUMIN 3.2 g/dL (3.5-5.0); BILIRUBIN,TOTAL 0.4 mg/dL (0.2-1.0); CREATININE 0.6 mg/dL (0.5-1.0); POTASSIUM 3.6 mmol/L (3.5-5.1); TOTAL PROTEIN, SERUM 7.3 g/dL (6.0-8.3)
--- NOTE | 2024-10-07 08:26 | HMCIMG ---
US ABDOMINAL RUQ\E\LTD HISTORY: Abdominal pain COMPARISON: 10/04/2024 TECHNIQUE: Right upper quadrant abdominal ultrasound study was performed. FINDINGS: Liver measured 13 cm. Portal vein is patent. The visualized portion of the pancreas is within normal limits. Liver is echogenic consistent with liver parenchymal disease. Gallstones are seen in the gallbladder. Common duct measures 4 mm. No evidence of gallbladder wall thickening is seen. Right kidney measures 10.3 x 4.6 x 5 cm. No hydronephrosis is seen of the right kidney. There may be right renal pelvic stone measuring 4 mm. IMPRESSION: 1. No gallstones or ductal dilatation is seen. 2. No hydronephrosis is seen.
[2024-10-07 09:43] LABS: APPEARANCE,URINE CLEAR (CLEAR); BILIRUBIN,URINE NEGATIVE (NEGATIVE); COLOR,URINE YELLOW (YELLOW); GLUCOSE, URINE (UA) NEGATIVE (NEGATIVE); KETONES,URINE 20 mg/dL (NEGATIVE); LEUKOCYTE ESTERASE ,URINE 25 Leu/uL (NEGATIVE); NITRATE,URINE NEGATIVE (NEGATIVE); OCCULT BLOOD,URINE NEGATIVE (NEGATIVE); PROTEIN,URINE 10 mg/dL (NEGATIVE); UROBILINOGEN,URINE >=8.0 mg/dL (0.2-1.0)
[2024-10-07 09:49] LABS: AMPHET/METH SCREEN,URINE NEGATIVE (NEGATIVE); BARBITURATE SCREEN, URINE NEGATIVE (NEGATIVE); BENZODIAZEPINES SCREEN,URINE NEGATIVE (NEGATIVE); CANNABINOID SCREEN,URINE NEGATIVE (NEGATIVE); COCAINE SCREEN,URINE NEGATIVE (NEGATIVE); OPIATE SCREEN,URINE NEGATIVE (NEGATIVE); PHENCYCLIDINE SCREEN,URINE NEGATIVE (NEGATIVE)
[2024-10-07 10:10] LABS: ADD UA MICROSCOPIC YES
[2024-10-07 10:16] LABS: BACTERIA,URINE RARE /HPF (None Seen); MUCUS,URINE RARE LPF (None Seen); RBC,URINE 0-1 /HPF (0-1); SQUAMOUS EPITHELIAL CELL,UR FEW /HPF (0-2)
--- NOTE | 2024-10-07 11:43 | NUR ---
INITIATED TRANSFER WITH [facility] UNDER THE DIRECTION OF DR Ca FIELD.
[2024-10-07 15:05] LABS: TRIGLYCERIDES 31 mg/dL (30-200)
--- NOTE | 2024-10-07 15:49 | NUR ---
[facility] [place] DUE TO PATIENT CRITERIA IS NOT SUFFICIENT HIGHER LEVEL OF CARE. DR Ca FIELD WAS NOTIFIED AND DECIDED TO REDRAW PATIENT AND DECIDE IF WILL ADMIT OR SEND HOME TO F/U WITH PHYSICIAN
[2024-10-07 19:28] LABS: CREATININE 0.5 mg/dL (0.5-1.0); POTASSIUM 3.6 mmol/L (3.5-5.1)
[2024-10-07 19:33] LABS: ALBUMIN 2.7 g/dL (3.5-5.0); BILIRUBIN,TOTAL 0.3 mg/dL (0.2-1.0); TOTAL PROTEIN, SERUM 6.4 g/dL (6.0-8.3)
[2024-10-07 21:16] VITALS: BP 114/71; PULSE 75; RESP 18; TEMP 98.6; O2SAT 100
--- NOTE | 2024-10-07 22:32 | NUR ---
PATIENT GIVEN A SANDWICH AND APPLE JUICE, TOLERATED WELL
== END 2024-10-08 00:21 | disposition home or self-care (01) ==
LOC: EDH 04:15
DX: O26.891 Other specified pregnancy related conditions, first trimester (principal); K80.20 Calculus of gallbladder without cholecystitis without obstruction; K85.90 Acute pancreatitis without necrosis or infection, unspecified; R10.2 Pelvic and perineal pain; Z3A.08 8 weeks gestation of pregnancy; Z79.899 Other long term (current) drug therapy
CPT/HCPCS: 99284; 96374; 76705; 96361; 96375; 84478; 82550; 80305; 84702; 85025; 36415; 81001; 80053 ×2; 83690 ×3; J1171; J7030 ×2; J2405